=== PATIENT | female | born 1990 | race Caucasian/White ===

== ENCOUNTER 2023-07-03 16:25 | Emergency (ER) | payer OTHER, SELFPAY ==
[2023-07-03 16:44] VITALS: BP 122/70
--- NOTE | 2023-07-03 17:54 | ED.GENMED ---
History of Present Illness
General
Chief Complaint: Throat Problem
Time Seen by Provider: 07/03/23 17:28
Travel History
Have you had any contact with someone who has COVID-19?: No
Do you have any symptoms of coronavirus? Fever > 100 degrees, chills, cough, shortness of breath, sore throat, loss of taste or smell, muscle aches, or headache?: No
History of Present Illness
History of Present Illness:
32-year-old female presents to the emergency department for evaluation of mild discomfort to the central submandibular space beginning earlier today. States that has improved with ibuprofen use. She saw her primary care physician was referred to
the emergency department for further evaluation. Denies any dysphagia, voice changes, neck rigidity, or jaw or rigidity. Denies any fevers or chills. No recent illnesses. Denies any trauma to the neck
Review of Systems
Review of Systems
Allergies reviewed?: Yes
All Other Systems: ROS reviewed and negative except as documented in HPI and ROS
Phy Exam
Physical Exam
Physical Exam:
GEN: Well appearing, NAD, WDWN
HEENT: Oral mucosa moist, no scleral icterus no tonsillar hypertrophy or exudates, uvula midline. No trismus. No palpable submandibular or sublingual adenopathy. Sublingual space is soft and nonboggy with no tenderness. No evidence for dental
infection
Cardiac: Regular rate
Lung: No respiratory distress, no tachypnea
MSK: No gross deformity or injuries
Skin: Good color, no pallor or jaundice, no rashes
Neuro: AO x3, moves all extremities freely
Psych: Calm, cooperative
Course
Vital Signs
Initial and Last Documented VS:
Initial Vital Signs
Temp Pulse Resp BP Pulse Ox
98.0 F 76 16 122/70 97
07/03/23 16:44 07/03/23 16:44 07/03/23 16:44 07/03/23 16:44 07/03/23 16:44
Last Documented Vital Signs
Temp Pulse Resp BP Pulse Ox
98.0 F 76 16 122/70 99
07/03/23 16:44 07/03/23 16:44 07/03/23 16:44 07/03/23 16:44 07/03/23 17:21
MDM/Problems Addressed
MDM/Problems Addressed:
Patient's exam is grossly benign. Discussed the risk of CT radiation with the patient and through shared decision making we opted to withhold imaging at this time. Recommend continued use of NSAIDs at home observation with return to emergency
department should any symptoms worsen
*Critical Care Note
Total Time (30-74mins, 75-104mins- exclusive of procedures): Not Applicable
ED Attending Note
-
Portions of this chart may have been created with voice recognition software.� Occasional wrong word or��sound alike� substitutions may have occurred due to the inherent limitations of voice recognition software.
Discharge Plan
Departure
Patient Disposition: Home (Routine Discharge)
Date of Disposition: 07/03/23
Time of Disposition: 17:54
Patient with high blood pressure during this ER visit?: No
Discharge Problem:
Discomfort of neck
Prescriptions:
No Action
No Current Medications
0
Referrals:
Jacqueline Colin MD [Family Provider] -
Activity Restrictions/Additional Instructions:
There are no concerning signs on exam of a deep space neck abscess or throat infection. Please take Advil as needed for symptoms and monitor for worsening. If it anytime it becomes difficult to swallow, your voice becomes hoarse, you have
stiffness with neck movement, or cannot open the jaw all the way, return to the emergency department for evaluation
Interventions
Interventions:
*Risk Screen - Suicide Last Done: 07/03/23 17:21
*General Assessment Last Done: 07/03/23 17:21
*Neglect/Abuse Screening Last Done: 07/03/23 17:21
ED- Fall Risk Assessment Last Done: 07/03/23 17:21
*ED COVID-19 Vaccine History Last Done: 07/03/23 16:44
*Nursing Disposition Last Done: 07/03/23 18:08
ED-EENT Assessment Last Done: 07/03/23 17:21
ED- Pulmonary Assessment Last Done: 07/03/23 17:21
Discharge Date and Time
Discharge Date/Time: 07/03/23 18:09
Print Language: CZECH
== END 2023-07-03 18:09 | disposition home or self-care (01) ==
LOC: EMR 16:25
PROVIDERS: EMERGENCY PHYSICIAN Emergency Medicine; FAMILY PHYSICIAN Emergency Medicine
DX: M54.2 Cervicalgia (principal); Z88.1 Allergy status to other antibiotic agents; Z91.048 Other nonmedicinal substance allergy status
CPT/HCPCS: 99281

== ENCOUNTER → 2023-12-11 09:19 | Outpatient (REF) | payer OTHER, SELFPAY | LOC: HWRAD 09:19 | PROVIDERS: ATTENDING PHYSICIAN Nurse Practitioner Family; FAMILY PHYSICIAN Family Medicine | DX: Z34.90 Encounter for supervision of normal pregnancy, unspecified, unspecified trimester (principal) | CPT/HCPCS: 76801 ==

== ENCOUNTER → 2024-08-02 13:35 | Outpatient (REF) | payer OTHER, SELFPAY | LOC: PNTC 13:35 | PROVIDERS: ATTENDING PHYSICIAN Nurse Practitioner Family | DX: Z34.90 Encounter for supervision of normal pregnancy, unspecified, unspecified trimester (principal) | CPT/HCPCS: 76801; 76817 ==

== ENCOUNTER → 2024-08-10 11:28 | Outpatient (REF) | payer OTHER, SELFPAY | LOC: PNTC 11:28 | PROVIDERS: ATTENDING PHYSICIAN Student in an Organized Health Care Education/Training Program | DX: O36.80X0 Pregnancy with inconclusive fetal viability, not applicable or unspecified (principal) | CPT/HCPCS: 76815; 76817 ==

== ENCOUNTER 2024-08-11 06:24 | Day surgery (SDC) | payer OTHER, SELFPAY ==
[2024-08-11 08:00] VITALS: BMI 30.7
[2024-08-11 08:05] VITALS: BP 110/65
[2024-08-11 08:30] VITALS: BMI 30.7
[2024-08-11] MEDS: NORMOSOL-R/PLASMALYTE-A 1000 IV (08:30)
[2024-08-11] MEDS: VIBRAMYCIN 200 MG PO (08:46)
[2024-08-11 09:00] LABS: Hematocrit 39.4 % (37.0-47.0); Hemoglobin 13.6 g/dL (12.0-16.0)
[2024-08-11 09:50] VITALS: BP 106/64
[2024-08-11 10:00] VITALS: BP 99/57
[2024-08-11 10:15] VITALS: BP 101/54
[2024-08-11 10:30] VITALS: BP 93/59
[2024-08-11 10:35] VITALS: BP 96/71
--- NOTE | 2024-08-11 18:24 | OR.RPT ---
Operative Report
Operative Report
Date of procedure: 08/11/2024
Preop diagnosis: missed
Postop diagnosis: same
Surgeon: Nixon
Procedure: dilation and evacuation
Anesthesia: MAC
EBL: 10mL
Findings: Bimanual exam revealed anteverted uterus. Normal appearing cervix without lesions or masses.
Complications: none
Pathology: products of conception
Indication: Patient is a 33yo who presents for scheduled dilation and evacuation. She had an ultrasound yesterday showing that fetus was measuring 6 weeks with no interval growth and no heart tones, consistent with a missed . She
was counseled on options including expectant, medical and surgical management. She desired surgical management with dilation and evacuation. Risks, benefits and alternatives were discussed and all questions answered prior to proceeding. Consents
were previously signed.
Procedure:
Patient was taken to the operating room and placed under general anesthesia. She was placed in the dorsal lithotomy position with Randolph type stirrups. She was given 200mg Doxycycline PO was given prior to the procedure for antibiotic prophylaxis.
She was prepped and draped in the normal sterile fashion. The bladder was drained with a straight catheter yielding 200cc of clear yellow urine. A Bradshaw retractor was placed in the posterior aspect of the vagina and the anterior aspect of the vagina
revealing good visualization of the cervix. The anterior lip of the cervix was grasped with a single tooth tenaculum. The cervix was sequentially dilated to accommodate a 7mm curved rigid suction curette. A 7mm curved rigid suction curette was
introduced to the fundus. Vacuum was applied until it was in the green. A suction curettage was then performed with a rotational motion in all quadrants of the uterus. Multiple passes were performed until all products of conception were removed.
Care was taken not to introduce the suction curette with suction applied. The tenaculum was removed from the anterior lip of the cervix. Hemostasis was then noted. All instruments were removed from the vagina. All sponge and instrument counts were
correct times 2. Patient was taken to PACU in stable condition.
== END 2024-08-11 10:49 | disposition home or self-care (01) ==
LOC: SDS 06:24
PROVIDERS: ATTENDING PHYSICIAN Student in an Organized Health Care Education/Training Program
DX: O02.1 Missed abortion (principal); N85.4 Malposition of uterus
CPT/HCPCS: 59820; 85014; 85018; 86850; 86900; 86901; 88305